=== PATIENT | male | born 1945 ===

== ENCOUNTER → 2025-01-30 13:48 | Outpatient (REF) | payer MEDICARE, SELFPAY ==
--- NOTE | 2025-01-30 14:00 | CA_ITS ---
Transthoracic Echocardiogram Patient (Last, First, Middle): Ash mitchell, Gender: Male Date of : 1945 Age: 79 Procedure Date: 01/30/2025 Procedure Type: Transthoracic Echocardiogram Location: [facility] Height: 177.8 cm Weight: 77.11 kg BSA: 1.95 m2 Heart Rate: bpm BP: 118 / 60 mmHg Senior Consulting Manager: Referring MD: Yolanda Blair DNP Symptoms: 135.0 Non Rheumatic Aortic Study Quality: Good ECG Rhythm: Sinus Conclusions: - The left ventricular systolic function is normal. The calculated ejection fraction is 66% by biplane method. - There is mild aortic valve stenosis. 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 Findings Left Ventricle Normal left ventricular cavity size. There is mildly increased left ventricular wall thickness. The left ventricular systolic function is normal. The calculated ejection fraction is 66% by biplane method. There is no evidence of regional wall motion abnormalities. Evidence suggests grade I (mild) diastolic dysfunction. Right Ventricle Normal right ventricular cavity size and systolic function. Atria Both atria are normal in size. Aortic Valve There is moderate calcification of the aortic valve. There is mild aortic valve stenosis. There is no aortic valve regurgitation. Mitral Valve The mitral valve appears normal. There is mild mitral annular calcification. There is no mitral valve regurgitation. There is no mitral valve stenosis. Pulmonic Valve The pulmonic valve is likely normal. Tricuspid Valve There is trace tricuspid valve regurgitation. There is no evidence of pulmonary hypertension. Great Vessels The asc aorta is normal in size. 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 Venous The inferior vena cava is normal in size and collapses greater than 50% with inspiration. Pericardium/Pleural There is no evidence of pericardial effusion. Prior Study Comparison No significant change compared to prior study dated: 11/19/2023. (prior study at [facility]) Measurements 2D Linear Measurements IVSd: 1.24 0.6-0.9/0.6-1.0 cm LVIDd: 3.81 3.9-5.3/4.2-5.9 cm LVIDd Index: 1.95 2.4-3.2/2.2-3.1 cm/m2 LVIDs: 2.54 2.0-3.6 cm LVPWd: 1.25 0.7-1.1 cm Ao Root: 3.50 2.1-3.5 cm LA Diam: 3.50 2.7-3.8/3.0-4.0 cm LAIDs Index: 1.79 1.5-2.3 cm/m2 LV Mass: 202.53 67-162/88-224 g LV Mass Index: 103.86 43-95/49-115 g/m2 LVOT Diam: 2.30 3.0+(-)1.3 cm 2D Systolic Function EF 4C: 68.80 >55% EF 2C: 62.50 >55% EF BiP: 66.20 >55% Mitral Valve MV Pk E: 0.90 MV PK A: 1.12 MV Decel Time: 199.00 E/A: 0.80 E'Lateral: 7.18 E'Medial: 5.66 E/E' Med: 15.90 E/E' Lat: 12.50 PHT: 58.00 MVA PHT: 3.[address] [place]: 4.51 Aortic Valve AoV Pk Greyson: 2.63 AoV Mn Greyson: 1.66 AoV VTI: 0.58 AoV Pk Grad: 28.00 Aov Mn Grad: 13.00 MARLEN Cont.VTI: 1.90 LVOT LVOT Pk Greyson: 0.96 LVOT Mn Greyson: 0.57 LVOT VTI: 0.26 LVOT Pk Grad: 4.00 LVOT Mn Grad: 2.00 LVOT Diam: 2.30 LVOT Area: 4.15 Diastolic Function MV Pk E: 0.90 MV Pk A: 1.12 E/A: 0.80 E'Medial: 5.66 E/E' Med: 15.90 E' Laterial: 7.18 E/E' Lat: 12.50 Right Ventricle TAPSE (mm): 30.00 Tricuspid Valve TR Pk Greyson: 1.96 TR Pk Grad: 15.00 RA Press: 3.00 RVSP: 18.00 Great Vessels Aorta Ao Root-2D: 3.50 2.0-3.7 cm Ao Asc: 3.80 2.1-3.4 cm Pulmonary Valve PV Pk Greyson: 0.96 Peak PV Grad: 4.00 Updated in Other Vendor System with Status of Final Volodymyr Galicia MD electronically signed on 01/31/2025 3:05:31 PM with status of Final
--- OUTSIDE RECORDS SUMMARY | 2025-01-30 15:04 | XMS_ITS | Data Portability ---
Author Organization [facility], [facility] Address [address] [place] [address] Care Team Providers Care Senior Materials Planner Name Role Phone PEDRO LUIS MERCER [place] CHRISTINE RON Primary Care Provider Assessment Encounter Date Assessment Date Assessment LastModified by Organization Details LastModified Time 09/29/2023 09/29/2023 We completed your Medicare Wellness exam today. This was an opportunity to assess your overall well being including your ability to care for yourself, your mobility, memory, mental health, as well as your safety. With advancing age, it is important to assign someone in your life as your Health Care Proxy (HCP). This person should know what is important to you and what your wishes are for medical procedures if you cannot communicate your wishes yourself (severe illness, unconsciousness) . We discussed having a completed Health Care Proxy form today. In addition, today we started a conversation about your End of Life wishes. These conversations will continue over the years. Please consider reading the book, Being Mortal by Howie Strong to help frame future conversations. We discussed the purpose of a MOLST form (Medical Orders for Life Sustaining Treatment) and completed this form if appropriate per your wishes. Vision and Hearing are senses that are critically important as we age. When impaired, they can contribute to memory loss, falls, and make it harder to drive, talk to family and friends, and engage in the world. Please get your vision checked yearly and your hearing checked when you start to notice hearing loss. We discussed approaches to lowering your risk of heart disease and stroke . Your blood pressure is at goal. Your cholesterol is at goal. We discussed cancer screening you may need as well as vaccines to prevent infections. Colon Cancer : Your risk of colon cancer is average. Due for colorectal screening:You decline this test.. if you are not planning to have a colonoscopy please screen with stool cards yearly. Aortic Aneurysm Screening : is indicated if you have a history of smoking and is due once at age 65. Influenza Vaccine : Flu shot yearly. Tetanus Vaccine : Every 10 years. Due: 2033. The following vaccines are available from your pharmacy: Pneumonia Vaccine : PCV20: once after age 65. Shingles Vaccine : 2 shots after age 50. Covid Vaccine : Make sure you have received the most up to date covid vaccine. Your personal health goal for the year is: [email or web address] Not available 09/29/2023 11:13:54 12/16/2023 12/16/2023 Patient reports waking up at 2:45 this morning with has left testicular pain. The pain was so severe that he almost went to the emergency room. The pain lasted about 5 minutes. He decided to try a warm compress, and this did seem to calm things down. He was able to go back to sleep, and describes a slight achiness in the left scrotum today. He denies any dysuria, or any systemic symptoms. Objective-vital signs noted. External exam is unremarkable. Left scrotal success a somewhat enlarged epididymis, but there was very little tenderness and no sign of a hernia. Assessment-acute , very intense left scrotal pain that came and went once. I explained to the patient that it may not be possible to figure out exactly what caused this. I believe a scrotal ultrasound is still appropriate to be sure that there are no anatomic abnormalities, and to try to alleviate the patient's anxiety that this could happen again at any minute. He is comfortable with this plan. josy Not available 12/16/2023 13:59:12 11/09/2024 11/09/2024 We reviewed your chronic medical conditions and updated your plan for management. Please review instructions below. We have discussed your personal goals and discussed how to reach your goals. Please reach out to us via the Portal or phone if you have questions about your chronic conditions or if you or your caregivers require assistance in meeting your goals. Please visit our website [email or web address] for more patient resources. As part of your care plan, we will help coordinate your ongoing medical needs, arrange for durable medical equipment, renew prescriptions and necessary prior authorizations, facilitate getting referrals and collaborating with specialist, referrals for VNA services. kit Not available 11/09/2024 09:25:43 12/19/2024 12/19/2024 We completed your Medicare Wellness exam today. This was an opportunity to assess your overall well being including your ability to care for yourself, your mobility, memory, mental health, as well as your safety. With advancing age, it is important to assign someone in your life as your Health Care Proxy (HCP). This person should know what is important to you and what your wishes are for medical procedures if you cannot communicate your wishes yourself (severe illness, unconsciousness) . We discussed having a completed Health Care Proxy form today. If appropriate, today we started a conversation about your End of Life wishes. These conversations will continue over the years. We discussed the purpose of a MOLST form (Medical Orders for Life Sustaining Treatment) and he will take the form home, review it, and return for a visit when available to complete this form if appropriate per his wishes. incubation Vision and Hearing are senses that are critically important as we age. When impaired, they can contribute to memory loss, falls, and make it harder to drive, talk to family and friends, and engage in the world. Please get your vision checked yearly and your hearing checked when you start to notice hearing loss. We discussed approaches to lowering your risk of heart disease and stroke . Your blood pressure is at goal. Your cholesterol is at goal. We discussed cancer screening you may need as well as vaccines to prevent infections. Colon Cancer : Your risk of colon cancer is average. Due for colorectal screening:declin ed. If you are not planning to have a colonoscopy please screen with stool cards yearly. Prostate Cancer : PSA testing for ages 55-69 risks and benefits discussed patient declines testing. Influenza Vaccine : Flu shot yearly. Tetanus Vaccine : Every 10 years. Due: 2033. The following vaccines are available from your pharmacy: Pneumonia Vaccine : PCV20: once after age 65. Shingles Vaccine : 2 shots after age 50. Covid Vaccine : Make sure you have received the most up to date covid vaccine. Your personal health goal for the year is: We reviewed your chronic medical conditions and updated your plan for management. Please review instructions below. We have discussed your personal goals and discussed how to reach your goals. Please reach out to us via the Portal or phone if you have questions about your chronic conditions or if you or your caregivers require assistance in meeting your goals. Please visit our website [email or web address] for more patient resources. As part of your care plan, we will help coordinate your ongoing medical needs, arrange for durable medical equipment, renew prescriptions and necessary prior authorizations, facilitate getting referrals and collaborating with specialist, referrals for VNA services. Aortic valve stenosis with an increasingly audible heart murmur. Discussed monitoring symptoms and potential need for another echo. Glaucoma- Uses brimonidine 0.2% eye drops twice daily. Discussed importance of adherence to treatment regimen to manage intraocular pressure. Hyperlipidemia- LDL level is 125, slightly elevated. HDL level is 59, which is good. Discussed dietary factors and aging as potential contributors to LDL levels. Encouraged regular physical activity to help manage cholesterol levels. Tobacco use- Smoked organic tobacco for about 40 years, quit 8-9 years ago. Discussed benefits of smoking cessation and use of nicotine gum. Uses nicotine gum but is considering reducing dependence. Wellness visit- Routine wellness visit conducted. Discussed vision and dental care. Follows a vegetarian diet and engages in regular physical activity. No family history of major diseases. Reviewed lab results, including LDL and HDL levels, which are within acceptable ranges. Discussed importance of maintaining a healthy lifestyle. Uses sunscreen and wears a seatbelt. Declined colonoscopy due to personal beliefs. - Continue annual vision and dental care. - Maintain regular physical activity and vegetarian diet. - Use sunscreen during summer and wear a seatbelt. - Consider installing grab bars in the bathroom for safety. - Schedule a follow-up appointment to finalize and sign the MOLST form. - Schedule a wellness visit in 1 year and return sooner willow Not available 12/19/2024 16:12:06 Plan of Treatment Reminders Order Date Submit Date Provider Last Modified By Organization Details Last Modified Time Details Appointments Gavinne Visit 30 2025 01:30P Eliza RON NP Not available Not available Not available Lab vitami n B12, serum 2024 025 [facility], [address] [place], [address], 11/14/2024 15:28:46 TSH, serum or plasma 2024 025 [facility], [address] [place], [address], 11/10/2024 13:37:17 CBC 2024 025 [facility], [address] [place], [address], 11/10/2024 11:16:15 lipid panel, serum 2024 025 [facility], [address] [place] [address], [address], 11/11/2024 11:52:20 CMP, serum or plasma 2024 025 [facility], [address] [place], [address], 11/11/2024 11:52:18 Referral audiol ogist referr al - b/mikey hearin g loss, please eval 2023 024 [facility]), [address] [facility], [facility] [address], [address], 10/06/2023 12:17:56 Procedures None record ed. Surgeries None record ed. Imaging US, echoca rdiogr am - Normal LV size and functi on EF 60 to 65%.No rmal RV size and functi on.Nor mal diasto lic functi on for age.Mi ld aortic stenos is peak veloci ty 2.4 m/s mean gradie nt 12 mmHg.C ompare d to study from 2021, there is no mild aortic stenos is. 2024 025 [email or web address] [facility], [address] [facility], [place], [address], 12/20/2024 08:01:25 US, scrotu m - episod e of severe left scrota l pain- resolv ed sponta neousl y--nnamdi n lasted intens marilu x 5 minute s- r/o mass- normal exam 2023 024 [facility]), [address], [place], [address], 12/16/2023 15:33:55 US, brice rdiogr am - eval for progre ssion of , compar e to 2pt remain s asx 2023 024 [email or web address] [facility], [address], [place], [address], 01/14/2024 16:23:38 Medication Orders clobet asol 0.05 % topica l cream 2024 025 [facility], [address] [place] [address], [address], 12/19/2024 16:33:36 brimon idine 0.2 % eye drops 2024 025 [facility], [address] [place] [address], [address], 12/19/2024 16:33:36 terbin afine HCl 1 % topica l cream 2024 025 [facility], [address] [place] [address], [address], 11/09/2024 09:29:14 Patient TargetsNo targets recorded. Patient Instructions Encounter Date Encounter Id Patient Instructions Last Modified By Organization Details Last Modified Time 09/29/2023 [id number] preventing falls: care instructions [email or web address] Not available 09/29/2023 11:10:59 hearing loss information [email or web address] Not available 09/29/2023 11:10:59 advance directives: care instructions [email or web address] Not available 09/29/2023 11:10:59 well visit, over 65: care instructions [email or web address] Not available 09/29/2023 11:11:00 Prostate Cancer Screening was discussed. The U.S. Preventive Services Task Force advises not to make a PSA test a part of the standard exam for men ages 55-69. Instead they recommend the uncertainties about the test be discussed and ordered only if a patient still wants it. Over their lifetimes as many as 50% or more of men will develop prostate cancer but only 2% of men will of prostate cancer. For men who chose to be screened for prostate cancer if 1000 men are screened with a psa test over a 15 year period there might be 1-2 deaths prevented however 235 men will have a biopsy with risk of infection, bleeding and Pain, 100 men will have their prostate removed by surgery or radiation treatments and 60-70 of those will suffer incontinence or impotence. There is also the risk of anesthesia or radiation complications. For men over 70 prostate cancer screening offered no benefit and risked pain, worry, expense and possibly shorter life expectancy. [email or web address] Not available 09/29/2023 10:03:16 11/09/2024 [id number] athlete's foot: care instructions [email or web address] Not available 11/09/2024 09:29:12 After a discussion of treatment options, which included consideration of best practices and patient preferences, the following treatment plan and objectives were adopted: as above. 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 ? ?L 4.23-9 .07 Not Available [address], [address], 11/10/2024 11:16:15 11/11/1911/10/2024 CBC RBC 4.82 M/? ? ?L 4.63-6 .08 Not Available [address], [address], 11/10/2024 11:16:15 11/11/1911/10/2024 CBC HGB 15.7 g/dL 13.7-1 7.5 Not Available [address], [address], 11/10/2024 11:16:15 11/11/19 25 11/10/2024 CBC HCT 46.0 % 40.1-5 1.0 Not Available [address], [address], 11/10/2024 11:16:15 11/11/19 25 11/10/2024 CBC MCV 95.4 fL 79.0-9 2.2 high Not Available [address], [address], 11/10/2024 11:16:15 11/11/19 25 11/10/2024 CBC MCH 32.6 pg 25.7-3 2.2 high Not Available [address], [address], 11/10/2024 11:16:15 11/11/19 25 11/10/2024 CBC MCHC 34.1 g/dL 32.3-3 6.5 Not Available [address], [address], 11/10/2024 11:16:15 11/11/19 25 11/10/2024 CBC plt 141 K/? ? ?L 163-33 7 low Not Available [address], [address], 11/10/2024 11:16:15 11/11/19 25 11/10/2024 CBC MPV 11.1 fL 9.4-12 .4 Not Available [address], [address], 11/10/2024 11:16:15 11/11/19 25 11/10/2024 CBC neut% 55.8 % 34.0-6 7.9 Not Available [address], [address], 11/10/2024 11:16:15 11/11/19 25 11/10/2024 CBC neut# 2.57 1.78-5 .38 Not Available [address], [address], 11/10/2024 11:16:15 11/11/19 25 11/10/2024 CBC lymph % 21.7 % 21.8-5 3.1 low Not Available [address], [address], 11/10/2024 11:16:15 11/11/19 25 11/10/2024 CBC lymph # 1.00 K/? ? ?L 1.32-3 .57 low Not Available [address], [address], 11/10/2024 11:16:15 11/11/19 25 11/10/2024 CBC mono% 15.2 % 5.3-12 .2 high SREV= Slide revie wed by donavon lawsonmasoud prajapati. Not Available [address], [address], 11/10/2024 11:16:15 11/11/19 25 11/10/2024 CBC mono# 0.70 0.30-0 .82 Not Available [address], [address], 11/10/2024 11:16:15 11/11/19 25 11/10/2024 CBC eo% 5.4 % 0.8-7. 0 Not Available [address], [address], 11/10/2024 11:16:15 11/11/19 25 11/10/2024 CBC eo# 0.25 0.04-0 .54 Not Available [address], [address], 11/10/2024 11:16:15 11/11/19 25 11/10/2024 CBC baso% 1.7 % 0.2-1. 2 high Not Available [address], [address], 11/10/2024 11:16:15 11/11/19 25 11/10/2024 CBC baso# 0.08 0.00-0 .08 Not Available [address], [address], 11/10/2024 11:16:15 11/11/19 25 11/10/2024 CBC RDW-CV 11.9 % 11.6-1 4.4 Not Available [address], [address], 11/10/2024 11:16:15 11/11/19 25 11/10/2024 CBC Ig% 0.200 % 0.000- 1.500 Ig % >0.5 Indic ates possi ble Left Shift Not Available [address], [address], 11/10/2024 11:16:15 11/11/19 25 11/10/2024 CBC Ig# 0.010 0.000- 0.093 Not Available [address], [address], 11/10/2024 11:16:15 11/11/19 25 11/10/2024 CBC NRBC% 0.0 % 0.0-0. 2 Not Available [address], [address], 11/10/2024 11:16:15 11/11/19 25 11/10/2024 CBC NRBC# 0.000 0.000- 0.012 Not Available [address], [address], 11/10/2024 11:16:15 11/11/19 25 11/10/2024 TSH TSH 1.12 uIU/m L 0.50-6 .00 The Ameri can Colle ge of Endoc rinol ogy and Ameri can Thyro id Assoc iatio n recom mend goal TSH value s betwe en 0.4-4 .0 mIU/m L. Not Available [address], [address], 11/10/2024 13:37:17 11/11/19 25 11/11/2024 COMP. METAB OLIC PANEL glucose 75 mg/dL 70-100 Not Available [address], [address], 11/11/2024 11:52:18 11/11/19 25 11/11/2024 COMP. METAB OLIC PANEL BUN 17 mg/dL 7-18 Not Available [address], [address], 11/11/2024 11:52:18 11/11/19 25 11/11/2024 COMP. METAB OLIC PANEL creatinine 0.9 mg/dL 0.8-1. 3 Not Available [address], [address], 11/11/2024 11:52:18 11/11/19 25 11/11/2024 COMP. METAB OLIC PANEL B/C 18.9 ratio Not Available [address], [address], 11/11/2024 11:52:18 11/11/19 25 11/11/2024 COMP. METAB OLIC PANEL GFR >=60ML /MIN mL/mi n normal >=60m L/min - In l or midly reduc ed <60mL /min- Decre ased kidne y funct ion <15mL /min - Kidne y failu re [facility] calcu lates estim ated Glome rular Filtr ation Rate (eGFR ) using the Chron ic Kidne y Disea se Epide miolo gy Colla borat ion (CKD- EPI) Equat ion (Brianna r et. al 2020) as recom zarina d by the Natio nal Kidne y Found ation . eGFR is based on age, serum creat inine , and sex. CKD-E PI does not calcu late eGFR by race, does not apply to child dante (age <18 years ), and shoul d not be used in pregn surya. Not Available [address], [address], 11/11/2024 11:52:18 11/11/19 25 11/11/2024 COMP. METAB OLIC PANEL sodium 142 mmol/ L 136-14 5 Not Available [address], [address], 11/11/2024 11:52:18 11/11/19 25 11/11/2024 COMP. METAB OLIC PANEL potassium 4.4 mmol/ L 3.5-5. 1 Not Available [address], [address], 11/11/2024 11:52:18 11/11/19 25 11/11/2024 COMP. METAB OLIC PANEL chloride 104 mmol/ L 96-107 Not Available [address], [address], 11/11/2024 11:52:18 11/11/19 25 11/11/2024 COMP. METAB OLIC PANEL anion gap 6.3 5.0-15 .0 Not Available [address], [address], 11/11/2024 11:52:18 11/11/19 25 11/11/2024 COMP. METAB OLIC PANEL CO2 32 mmol/ L 21-32 Not Available [address], [address], 11/11/2024 11:52:18 11/11/19 25 11/11/2024 COMP. METAB OLIC PANEL calcium 9.1 mg/dL 8.5-10 .3 Not Available [address], [address], 11/11/2024 11:52:18 11/11/19 25 11/11/2024 COMP. METAB OLIC PANEL total protein 6.0 g/dL 6.4-8. 2 low Not Available [address], [address], 11/11/2024 11:52:18 11/11/19 25 11/11/2024 COMP. METAB OLIC PANEL albumin 3.6 g/dL 3.4-5. 0 Not Available [address], [address], 11/11/2024 11:52:18 11/11/19 25 11/11/2024 COMP. METAB OLIC PANEL globulin 2.4 g/dL Not Available [address], [address], 11/11/2024 11:52:18 11/11/19 25 11/11/2024 COMP. METAB OLIC PANEL A/G 1.5 ratio 0.8-2. 0 Not Available [address], [address], 11/11/2024 11:52:18 11/11/19 25 11/11/2024 COMP. METAB OLIC PANEL total bilirubin 0.90 mg/dL 0.00-1 .00 Not Available [address], [address], 11/11/2024 11:52:18 11/11/19 25 11/11/2024 COMP. METAB OLIC PANEL AST 19 U/L 0-37 Not Available [address], [address], 11/11/2024 11:52:18 11/11/19 25 11/11/2024 COMP. METAB OLIC PANEL ALT 31 U/L 6-63 Not Available [address], [address], 11/11/2024 11:52:18 11/11/19 25 11/11/2024 COMP. METAB OLIC PANEL alk. phos. 81 U/L 50-136 Not Available [address], [address], 11/11/2024 11:52:18 11/11/19 25 11/11/2024 LIPID PANEL cholesterol 201 mg/dL <200 mg/dl Ashia able 200-2 39 mg/dl Borde rline High >240 mg/dl High Not Available [address], [address], 11/11/2024 11:52:19 11/11/1911/11/2024 LIPID PANEL triglyceride s 66 mg/dL <150 mg/dL Ni l 150-1 99 mg/dL Borde rline High 200-4 99 mg/dL High >500 mg/dL Very High Not Available [address], [address], 11/11/2024 11:52:19 11/11/1911/11/2024 LIPID PANEL direct HDL 60 mg/dL <40 mg/dl - Major Risk for CHD >60 mg/dl - Negat lani Risk for CHD Not Available [address], [address], 11/11/2024 11:52:19 11/11/1911/11/2024 DIREC T LDL direct LDL 138 mg/dL RISK CATEG ORY LDL GOAL _ CHD or CHD Risk Equiv alent s <100 mg/dl (10-y ear risk >20%) 2+ Risk Facto rs <130 mg/dl (10-y ear risk <= 20%) 0-1 Risk Facto r? <160 mg/dl ? Almos t all peopl e with 0-1 risk facto r have a 10 year risk <10%, thus 10 year risk asses ment in peopl e with 0-1 risk facto r is not neceda silvestre. Not Available [address], [address], 11/11/2024 11:52:20 11/11/1911/14/2024 VITAM IN B12 vitamin B12 524 pg/mL 230-10 50 Not Available [address], [address], 11/14/2024 15:28:46 12/15/19 25 12/14/2024 CBC WBC 4.45 K/? ? ?L 4.23-9 .07 Not Available [address], [address], 12/14/2024 12:10:54 12/15/19 25 12/14/2024 CBC RBC 4.95 M/? ? ?L 4.63-6 .08 Not Available [address], [address], 12/14/2024 12:10:54 12/15/19 25 12/14/2024 CBC HGB 16.0 g/dL 13.7-1 7.5 Not Available [address], [address], 12/14/2024 12:10:54 12/15/19 25 12/14/2024 CBC HCT 47.0 % 40.1-5 1.0 Not Available [address], [address], 12/14/2024 12:10:54 12/15/19 25 12/14/2024 CBC MCV 94.9 fL 79.0-9 2.2 high Not Available [address], [address], 12/14/2024 12:10:54 12/15/1912/14/2024 CBC MCH 32.3 pg 25.7-3 2.2 high Not Available [address], [address], 12/14/2024 12:10:54 12/15/19 25 12/14/2024 CBC MCHC 34.0 g/dL 32.3-3 6.5 Not Available [address], [address], 12/14/2024 12:10:54 12/15/19 25 12/14/2024 CBC plt 151 K/? ? ?L 163-33 7 low Not Available [address], [address], 12/14/2024 12:10:54 12/15/1912/14/2024 CBC MPV 10.8 fL 9.4-12 .4 Not Available [address], [address], 12/14/2024 12:10:54 12/15/1912/14/2024 CBC neut% 55.6 % 34.0-6 7.9 Not Available [address], [address], 12/14/2024 12:10:54 12/15/1912/14/2024 CBC neut# 2.47 1.78-5 .38 Not Available [address], [address], 12/14/2024 12:10:54 12/15/1912/14/2024 CBC lymph % 22.0 % 21.8-5 3.1 Not Available [address], [address], 12/14/2024 12:10:54 12/15/1912/14/2024 CBC lymph # 0.98 K/? ? ?L 1.32-3 .57 low Not Available [address], [address], 12/14/2024 12:10:54 12/15/1912/14/2024 CBC mono% 15.7 % 5.3-12 .2 high SREV= Slide revie wed by [facility]. Not Available [address], [address], 12/14/2024 12:10:54 12/15/19 25 12/14/2024 CBC mono# 0.70 0.30-0 .82 Not Available [address], [address], 12/14/2024 12:10:54 12/15/19 25 12/14/2024 CBC eo% 5.4 % 0.8-7. 0 Not Available [address], [address], 12/14/2024 12:10:54 12/15/19 25 12/14/2024 CBC eo# 0.24 0.04-0 .54 Not Available [address], [address], 12/14/2024 12:10:54 12/15/19 25 12/14/2024 CBC baso% 1.1 % 0.2-1. 2 Not Available [address], [address], 12/14/2024 12:10:54 12/15/1912/14/2024 CBC baso# 0.05 0.00-0 .08 Not Available [address], [address], 12/14/2024 12:10:54 12/15/19 25 12/14/2024 CBC RDW-CV 12.0 % 11.6-1 4.4 Not Available [address], [address], 12/14/2024 12:10:54 12/15/1912/14/2024 CBC Ig% 0.200 % 0.000- 1.500 Ig % >0.5 Indic ates possi ble Left Shift Not Available [address], [address], 12/14/2024 12:10:54 12/15/1912/14/2024 CBC Ig# 0.010 0.000- 0.093 Not Available [address], [address], 12/14/2024 12:10:54 12/15/19 25 12/14/2024 CBC NRBC% 0.0 % 0.0-0. 2 Not Available [address], [address], 12/14/2024 12:10:54 12/15/1912/14/2024 CBC NRBC# 0.000 0.000- 0.012 Not Available [address], [address], 12/14/2024 12:10:54 12/15/19 25 12/14/2024 LIPID PANEL cholesterol 199 mg/dL <200 mg/dl Ashia able 200-2 39 mg/dl Borde rline High >240 mg/dl High Not Available [address], [address], 12/14/2024 15:41:20 12/15/19 25 12/14/2024 LIPID PANEL triglyceride s 126 mg/dL <150 mg/dL Ni l 150-1 99 mg/dL Borde rline High 200-4 99 mg/dL High >500 mg/dL Very High Not Available [address], [address], 12/14/2024 15:41:20 12/15/19 25 12/14/2024 LIPID PANEL direct HDL 59 mg/dL <40 mg/dl - Major Risk for CHD >60 mg/dl - Negat lani Risk for CHD Not Available [address], [address], 12/14/2024 15:41:20 12/15/1912/14/2024 DIREC T LDL direct LDL 125 mg/dL RISK CATEG ORY LDL GOAL _ CHD or CHD Risk Equiv alent s <100 mg/dl (10-y ear risk >20%) 2+ Risk Facto rs <130 mg/dl (10-y ear risk <= 20%) 0-1 Risk Facto r? <160 mg/dl ? Almos t all peopl e with 0-1 risk facto r have a 10 year risk <10%, thus 10 year risk asses ment in peopl e with 0-1 risk facto r is not eran silvestre. Not Available [facility] [address], [place], [address], 12/14/2024 15:41:21 11/19/19 24 11/19/2023 US, echoc ardio gram Table format ting from the origin al result was not includ ed. Images from the origin al result were not includ ed. Result Report Patijuan blanca Name: Ash Campbell Class: Outpat ient Sonogr apher: Brice Fong Perfor muriel Physic pawan: None Select ed Suppor ting Staff: None Select ed Orderi ng Prov: Dalton -Vecch io, Kimberley ine E Primar y Care Physic pawan: Kat ine E Dalton -vecch io Diagno sis: Nonrhe umatic aortic (valve ) stenos is [I35.0 (ICD-1 0-CM)] Reason For Exam: NONRHE UMATIC AORTIC VALVE STENOS IS Other Indica tion (Pleas e use free text) Proced ure(s) Perfor med: Compre hensiv e Echo (TTE) Date Perfor med: 024 Access ion #: [id number] Result Status : Final Adult Echo TTE: Patien evangelist Commun icatio n Not Releas ed Not seen Echo Findin gs Genera l Findin gs The image qualit y was good (2). Techni que(s) used in the evalua tion: Color flow Dopple r and Spectr al Dopple r. The predom inant rhythm during the study was sinus. Left Ventri fernando The left ventri fernando is normal in size. There is normal wall thickn ess. There is normal left ventri cular systol ic functi on. The LV ejecti on fracti on is 63% (calcu lated via biplan e measur ement) . LV diasto lic functi on appear s within normal limits for age. The E/A ratio is 1.0. The e' septal wave veloci ty is 7.3 cm/s. The e' latera l wave veloci ty is 8.4 cm/s. The averag e E/e' ratio is 11.1. Right Ventri fernando The right ventri fernando is normal in size. There is normal right ventri cular systol ic functi on. IAS/IV S The intera trial septum appear s normal . There is no eviden ce of patent forame n ovale (PFO). There is normal septal struct ure. There is no eviden ce of a ventri cular septal defect . Left Atrium The left atrium is normal in size. The left atrial volume is 40 mL. The left atrial volume index by BSA is 21 mL/m2. There are normal flow patter ns in the pulmon sidney vein. Right Atrium The right atrium is normal in size. The IVC is normal in size with normal inspir atory collap se. The IVC diamet er is 19 mm (ni l <= 21 mm). Hepati c veins are normal in size. Aortic Valve The aortic valve is tricus pid. There is calcif icatio n of multip le leafle ts. There is mild aortic stenos is. The aortic valve peak veloci ty is 2.4 m/s. The peak and mean aortic valve gradie nts are 23 mmHg and 13 mmHg respec tively . There is trace aortic regurg itatio n. The visual ized portio ns of the thorac ic aorta appear normal in size. Mitral Valve The mitral valve appear s normal . There is no mitral stenos is. There is trace mitral regurg itatio n. Tricus pid Valve The tricus pid valve appear s normal . There is no tricus pid stenos is. There is trace tricus pid regurg itatio n. The RV systol ic pressu re was calcul ated at 13 mmHg (using TR peak veloci ty of 1.6 m/s and assumi ng an RA pressu re of 3 mmHg). Pulmon ic Valve The pulmon ic valve appear s normal . Perica rdium There is no perica rdial effusi on. There are no pleura l effusi ons. Compar jelani Findin gs Compar ed to a prior study on 022, Routin e Measur ements Height : 177 cm Systol ic BP: 151 mmHg Weight : 78 kg Diasto lic BP: 73 mmHg Body Surfac e Area: 1.95 m2 LV Measur ements LVIDed 44 mm (Range : 42 - 58) LVIDes 31 mm (Range : <40) IVS 9 mm (Range : 6 - 11) PWT 10 mm (Range : 6 - 11) LV EF 63 Percen t (Range : 50 - 75) LVOT gradie nt peak rest 4 mmHg E wave veloci ty 87.0 cm/s A wave veloci ty 90.7 cm/s e' (lat) 8.4 cm/s E/e' (lat) 10.36 AV Measur ements Ao Sinus 35 mm (Range : <40) Asc Ao 36 mm (Range : <36) AV peak veloci ty 2.4 m/s AV peak gradie nt 23 mmHg AV mean gradie nt 13 mmHg LVOT diamet er 19.0 mm LVOT veloci ty 1.0 m/s MV Measur ements E wave veloci ty 87.0 cm/s A wave veloci ty 90.7 cm/s Other Measur ements LA A-P 27 mm (Range : 15 - 40) LA volume 40 mL LA volume index by BSA 21 mL/m2 (Range : 16 - 34) RV sys pressu re 13 mmHg TV peak regurg itant veloci ty 1.6 m/s Mech Circ Suppor t Testin g LVd LVs TR peak roger RVSP (excl RAP) Initia l 44 mm (Range : 42 - 58) 31 mm (Range : <40) 1.6 m/s 10 mmHg Interp retati on Summar y Normal LV size and functi on EF 60 to 65%. Normal RV size and functi on. Normal diasto lic functi on for age. Mild aortic stenos is peak veloci ty 2.4 m/s mean gradie nt 12 mmHg. Compar ed to study from 2021, there is no mild aortic stenos is. Signed Electr onical ly signed by Seferino Rios MD on 4 at 1310 EDT Readin g Physic ians Physic pawan Role Seferino Rios MD Attend ing Cardio logist EVALUA TE FOR PROGRE SSION OF [facility] IO mmastroberti [facility] [address] [place], [address], 01/14/2024 16:23:37 12/16/19 24 12/16/2023 US, scrot um CLINIC AL HISTOR Y: Acute left scrota l pain TECHNI QUE: The scrotu m is evalua susanne with 2d sonogr aphy includ ing color and spectr al Dopple r of the arteri es and veins of the testic les. COMPAR JELANI: None. FINDIN GS: RIGHT TESTIC LE : 2.2 x 3.3 x 2.3 cm No intrat esticu lar mass is visual ized. Vascul ar flow to the testic le is normal . The epidid ymis is unrema rkable . LEFT TESTIC LE: 2 x 2.9 x 1.7 cm No intrat esticu lar mass is visual ized. There are 2 small cysts in the left testis . Vascul ar flow to the testic le is normal . The epidid ymis is unrema rkable . There are small bilate ral hydroc eles. IMPRES HIRA: No eviden ce of torsio n or other acute abnorm ality. Small bilate ral hydroc eles. Small left testic ular cysts Readin g Physic pawan: Rocky [facility] (Imaging) [address], [place], [address], 12/31/2023 08:55:55 Result Notes None recorded. Problems Name Problem SNOMED Code Status Onset Date Resolution Date Notes Provider Name and Address Organization Details Recorded Time Pain of shoulder region 50294631 Completed 07/20/2013 Not Available [facility] 3 02:01:03 Cough 86696605 Completed 200807/20/2013 Not Available [facility] 3 02:01:09 Knee pain Completed 200707/20/2013 Not Available [facility] 3 02:00:42 Acute bronchit is 27483999 Completed 200607/20/2013 Not Available [facility] 3 02:01:37 Upper respirat ory infectio n 92100764 Completed 05/08/2015 Laura Rose NP [address] [place] [address], , [facility] 5 12:44:12 Glaucoma 76371419 Active 2012 Laura Rose NP [address] [place] [address], , [facility] 5 12:44:12 Senile hyperker atosis 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 Active Laura Rose NP [address] [place] [address], , [facility] 5 13:02:37 Tobacco dependen ce syndrome 24894068 Completed 201609/16/2017 Mack Guadarrama MD [address] [place] [address], , [facility] 8 12:07:06 Nicotine dependen ce 48491616 Active 2017 nicotine gum daily Quit smoking 01/2014 Teetee shetty PA-C [address] [place] [address], , [facility] 9 16:34:39 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 TTE 10/2023 MILD . No change from 2021. 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 Procedures Surgical History Date Name Laterality Status Provider Name and Address Organization Details Recorded Time 12/20/19 25 Medicare Wellness Visit completed Elinor Owens MA [facility] 12/13/2024 16:50:00 12/20/19 25 Cerumen Removal - Irrigation/Lavage completed Sheela Hawk RN [facility] 12/19/2024 16:23:40 09/29/19 24 Medicare Wellness Visit completed Kelly Castillo MA [facility] 09/29/2023 10:03:17 09/29/19 24 Cerumen Removal - Irrigation/Lavage completed Marguerite Smith LPN [facility] 09/29/2023 11:32:06 09/29/19 24 Cardiovascular disease risk reduction counseling completed Teetee dumas PA-C [address] [place] [address], [phone], [facility] 10/01/2023 13:43:24 09/26/19 23 Medicare Wellness Visit completed Helene Suarez MA [facility] 09/26/2022 08:37:11 09/26/19 23 Cerumen Removal - Irrigation/Lavage completed Sheela Hawk RN [facility] 09/26/2022 10:23:48 09/26/19 23 Cardiovascular disease risk reduction counseling completed Rebeka Chavez DO [address] [place] [address], [phone], [facility] 09/30/2022 18:00:11 07/02/20 22 Punch Biopsy completed Teetee dumas PA-C [address] [place] [address], [phone], [facility] 07/02/2022 15:34:06 09/24/19 22 Medicare Wellness Visit completed Elinor Owens MA [facility] 09/24/2021 11:40:18 09/24/19 22 Alcohol use screening completed Elinor Owens MA [facility] 09/24/2021 11:40:18 09/24/19 22 Cardiovascular disease risk reduction counseling completed Elinor Owens [facility] 09/24/2021 11:40:18 01/06/20 19 Medicare Wellness Visit completed Jaycee Sanchez [facility] 01/05/2019 15:59:40 01/06/20 19 Cerumen Removal - Irrigation/Lavage completed Teetee dumas, PA-C [address] [place] [address], [phone], [facility] 01/05/2019 17:46:24 09/13/19 19 Cerumen Removal - Using Instrumentation completed Teetee dumas, PA-C [address] [place] [address], [phone], [facility] 09/13/2018 17:01:41 04/01/20 18 Smoking cessation counseling completed GRABIEL Duran [address] [place] [address], [phone], [facility] 04/13/2018 21:18:37 04/01/20 18 Carbon Monoxide Testing completed GRABIEL Duran [address] [place] [address], [phone], [facility] 04/13/2018 21:18:37 06/24/20 17 Medicare Wellness Visit completed Dalia Tavera MA [facility] 06/24/2017 10:32:33 06/23/20 16 Medicare Wellness Visit completed Dalia Tavera MA [facility] 06/23/2016 10:15:20 06/19/20 15 Medicare Wellness Visit completed Dalia Tavera MA [facility] 06/19/2015 10:15:01 02/24/20 14 Medicare Wellness Visit completed Dalia Tavera MA [facility] 02/23/2014 15:45:18 10/20/19 14 Smoking cessation counseling completed Reba Gonzáles [facility] 10/20/2013 12:12:15 02/22/20 13 Medicare Wellness Visit completed Dalia Tavera MA [facility] 02/21/2013 11:37:50 07/30/20 12 Treatment and Advice completed Tomas Eli, PT [address] [facility], [place], [address], [facility] 07/30/2012 08:34:48 07/13/20 12 Cerumen Removal completed Carmencita Montejo RN [facility] 07/13/2012 09:49:31 09/24/19 12 Medicare Wellness Visit completed Dalia Tavera MA [facility] 09/24/2011 11:22:15 Imaging Results None recorded. Procedure Notes None recorded. Medical Equipment None Reported. Allergies No known drug allergies Medications Name Sig Start Date Stop Date Status Note LastModified by Organization Details LastModified Time latanopro st job 0.005% active Not Available Not Available Not Available brimonidi ne tartrate 0.15 % soln active Not Available Not Available Not Available brimonidi ne job 0.15%brim onidine tartrate 04/22 completed Not Available Not Available Not Available brimonidi ne job 0.15% active Not Available Not Available Not Available flurbipro fen job 0.03% op active Not Available Not Available Not Available latanopro st 0.005 % eye drops INSTILL 1 DROP IN BOTH EYES AT BEDTIME 04/22 completed Not Available Not Available Not Available terbinafi ne HCl 1 % topical cream APPLY TO THE AFFECTED AND SURROUND ING AREAS OF SKIN BY TOPICAL ROUTE ONCE DAILY 2024 active Not Available Not Available Not Avai lable nicotine (polacril ex) 2 mg gum CHEW 1 PIECE OF GUM EVERY 2 HOURS DIRECTED active Not Available Not Available No t Available flurbipro fen 0.03 % eye drops INSTILL 1 DROP INTO THE RIGHT EYE THREE TIMES A DAY FOR 4 DAYS STARTING AFTER SURGERY ON 09/05/13 active Not Available Not Available No t Available clobetaso l 0.05 % topical cream APPLY A THIN LAYER TO AFFECTED AREA TOPICALL Y TWICE A DAY 2024 active Not Available Not Available Not Avai lable triamcino lone acetonide 0.1 % topical cream APPLY A THIN LAYER TO THE AFFECTED AREA(S) BY TOPICAL ROUTE 2 TIMES PER DAY 11/16 /2022 completed Not Available Not Available Not Available prednisol one acetate 1 % eye drops,isai pension 04/01 completed Not Available Not Available Not Available timolol maleate 0.25 % eye drops INSTILL ONE (1) DROP IN RIGHT EYE TWICE DAILY active Not Available Not Available No t Available cephalexi n 500 mg capsule Take 1 capsule every 8 hours by oral route for 5 days. 06/03 completed Not Available Not Available Not Available erythromy sherri 5 mg/gram (0.5 %) eye ointment active not current, but would like script- discussi ng during visit 12/19/24 am Not Available Not Available Not Available brimonidi ne 0.2 % eye drops INSTILL 1 DROP INTO AFFECTED EYE(S) BY OPHTHALM IC ROUTE EVERY 8 HOURS 2024 active Not Available Not Available Not Avai lable codeine 10 mg-guaife nesin 100 mg/5 mL Syrup Take 10 mL every 4 hours by oral route. 04/22 completed Not Available Not Available Not Available mupirocin 2 % topical ointment APPLY A SMALL AMOUNT TO THE AFFECTED AREA BY TOPICAL ROUTE 3 TIMES PER DAY 09/26 completed Not using 07/02/22 PP Not Available Not Available Not Available brimonidi ne 0.15 % eye drops INSTILL 1 DROP INTO BOTH EYES TWICE A DAY 12/19 completed Not Available Not Available Not Available nicotine 7 mg/24 hr daily transderm al patch Apply 1 patch every day by transder mal route. 04/22 completed Not Available Not Available Not Available neomycin 3.5 mg/g-poly myxin B 10,000 unit/g-de xameth 0.1 % eye oint 04/22 completed Not Available Not Available Not Available chlorhexi dine gluconate 0.12 % mouthwash 09/16 completed Not Available Not Available Not Available [employer] At-Home COVID-19 Test kit REFER TO MANUFACT URER INSTRUCT IONS INCLUDED IN PACKAGIN G 06/03 completed Not Available Not Available Not Available Vitals Date Recorded Body height Body mass index (BMI) Body weight Heart rate Systolic blood pressure Diastolic blood pressure Provider Name and Address Organization Details Last Updated DateTime 4 173.99 cm 24.9 kg/m2 03061.1 3 g 58 /min 120 mm[Hg] 66 mm[Hg] Kelly Castillo [facility] 4 10:18:16 Date Recorded Body height Body temperature Oxygen saturation Oxygen saturation in Arterial blood by Pulse oximetry Heart rate Body mass index (BMI) Body weight Systolic blood pressure Diastolic blood pressure Provider Name and Address Organization Details Last Updated DateTime 5 173.99 cm 97.2 [degF] 97 % 97 % 64 /min 25.5 kg/m2 11132.7 g 124 mm[Hg] 60 mm[Hg] Hanna Monroe [facility] 5 08:43:15 Date Recorded Body height Body mass index (BMI) Body weight Heart rate Systolic blood pressure Diastolic blood pressure Provider Name and Address Organization Details Last Updated DateTime 4 173.99 cm 24.9 kg/m2 57642.3 3 g 56 /min 123 mm[Hg] 73 mm[Hg] Susan ramires [facility] 4 13:37:52 Date Recorded Body height Heart rate Body mass index (BMI) Body weight Oxygen saturation Oxygen saturation in Arterial blood by Pulse oximetry Systolic blood pressure Diastolic blood pressure Provider Name and Address Organization Details Last Updated DateTime 5 173.99 cm 98 /min 26.4 kg/m2 92801.2 6 g 99 % 99 % 130 mm[Hg] 78 mm[Hg] Elinor Owens [facility] 5 15:09:35 Date Recorded Body height Oxygen saturation Oxygen saturation in Arterial blood by Pulse oximetry Heart rate Body mass index (BMI) Body weight Systolic blood pressure Diastolic blood pressure Provider Name and Address Organization Details Last Updated DateTime 4 173.99 cm 97 % 97 % 62 /min 25.5 kg/m2 13650.5 g 90 mm[Hg] 50 mm[Hg] Rad Mcclellan [facility] 4 16:04:14 Social History Question Answer Notes LastModified by Organizat ion Details LastModified Time Tobacco Smoking Status Former Smoker stopped 01/01/14- millie canas nicorette gum-02/23/14 ABOUT 2YEARS AGO Not Available [facility] 01/23/2011 02:08:46 Do You Wear A Helmet When Biking? No Information not available 09/24/2021 Are You Blind Or Do You Have Difficulty Seeing? No Has Current Rx-02/23/14 Information not available 02/23/2014 What Is Your Level Of Caffeine Consumption? Occasional 2 Cups Of Green Tea A Day, Mixes With Alma Delia [email or web address] Information not available 09/29/2023 How Much Tobacco Do You Chew? None Information not available 07/17/2011 Are You Deaf Or Do You Have Serious Difficulty Hearing? No Information not available 02/23/2014 What Type Of Diet Are You Following? VEGETARIAN Eats A Little Fish, Chicken Information not available 09/29/2023 Which Illicit Or Recreational Drugs Have You Used? None Information not available 02/21/2013 Education 4 Year College Information not available 07/17/2011 What Is The Highest Grade Or Level Of School You Have Completed Or The Highest Degree You Have Received? [id number] Furniture Making Information not available 09/24/2021 Have There Been Any Changes To Your Family Or Social Situation? No Information not available 09/26/2022 When Did You Quit Smoking? 6-10yearssinc elastcigarett e [email or web address] Information not available 09/26/2022 Are There Any Guns Present In Your Home? No Information not available 07/17/2011 Do You Use Insect Repellent Routinely? No Information not available 09/24/2021 Live Alone Or With Others? Alone Information not available 07/17/2011 Patient Has Health Care Proxy Signed And In Chart Yes Re Give 09/24/11; - Form Regiven 02/21/13 Sister-form Regiven 06/20/15 Information not available 09/25/2021 CCM Consent Discussion 09/26/2022 Information not available 09/26/2022 Marital Status Single Information not available 07/17/2011 What Was The Date Of Your Most Recent Tobacco Screening? 12/19/2024 Information not available 12/19/2024 How Many Children Do You Have? 1 And Maurice-juliet r [email or web address] Information not available 09/26/2022 What Is Your Current Pack Years? 30ormorepacky ears [email or web address] Information not available 09/29/2023 What Is Your Relationship Status? Information not available 09/24/2021 Do You Use Your Seat Belt Or Car Seat Routinely? No Yes For Long Trips [email or web address] Information not available 09/29/2023 Seat Belts Used Routinely Yes Information not available 09/24/2011 Are You Sexually Active? Yes [email or web address] Information not available 06/23/2016 Smoke Alarm In Home Yes Information not available 07/17/2011 Do You Have Smoke And Carbon Monoxide Detectors In Your Home? Yes Information not available 09/24/2021 At What Age Did You Start Smoking Tobacco? 19 Information not available 07/17/2011 Are You Passively Exposed To Smoke? No Information not available 09/24/2021 General Stress Level Medium Information not available 07/17/2011 Do You Use Sunscreen Routinely? Yes Prn [email or web address] Information not available 09/26/2022 How Many Years Have You Smoked Tobacco? 49 [email or web address] Information not available 09/29/2023 Do You Have Difficulty Walking Or Climbing Stairs? No Information not available 02/23/2014 Sex: Male Functional Status Question Answer Note LastModified by Organizat ion Details LastModified Time Do you use any illicit or recreational drugs? No Information not available 07/02/2022 Do you or have you ever used any other forms of tobacco or nicotine? No Information not available 07/02/2022 What is your level of alcohol consumption? None quit 13 years ago [email or web address] Information not available 11/12/2021 Do you or have you ever used smokeless tobacco? Never used smokeless tobacco [email or web address] Information not available 03/15/2021 Are you currently employed? Yes works [employer] Information not available 09/26/2022 Do you have difficulty doing errands alone? No Information not available 02/23/2014 What is your occupation? [employer] Information not available 07/17/2011 Do you have difficulty dressing or bathing? No Information not available 02/23/2014 Do you or have you ever used e-cigarettes or vape? Never used electronic cigarettes [email or web address] Information not available 03/15/2021 What is your exercise level? Occasional hiking, bike [email or web address] Information not available 09/29/2023 Mental Status Question Answer Note LastModified by Organization D etails LastModified Time Do you have difficulty concentrating, remembering or making decisions? No Information no t available 02/23/2014 Family History Nothing Reported Notes:father- skin cancer, e tohism mother- cva sister-healthy Medical History Condition Response Coronary Artery Disease N Gout N Atrial Fibrillation N Macular Degeneration N Kidney Stones N Erectile Dysfunction N Menopausal Symptoms N COPD N Depression N Incontinence N Cerebral Vascular Accident N ENDOCRINE N MUSCULOSKELETAL N Migraine Headaches N Congestive Heart Failure N RESPIRATORY N Alcoholism N Obesity N Diverticulosis N acne N Stroke N Crohn's Disease N OTHER N HIV/AIDS N CARDIOVASCULAR N GERD N Skin Cancer N Skin Disease N Rheumatoid Arthritis N Fibromyalgia N Irritable Bowel Syndrome N Chronic Vaginitis N Kidney Disease N Spondylitis N Anxiety N GASTROINTESTINAL N SKIN N Peptic Ulcer Disease N Constipation N RHEUMATOLOGIC N Osteopenia N Rheumatic Fever N Cataracts N Bleeding Disorder N Tuberculosis N HEMATOLOGIC N Myocardial Infarction N Allergic Rhinitis N Allergies N Asthma N Polycystic Ovary Syndrome N Diabetes Type II N Substance Abuse N Seizures N Peripheral Vascular Disease N Rheumatic Heart Disease N Abnormal Pap N Diabetes Type I N Thyroid Disease N Leukemia N Colon Cancer N Breast Cancer N INFECTIOUS DISEASE N Lung Cancer N Alzheimers Dementia N Glaucoma N Hyperthyroid N Pacemaker N Atrophic Vaginitis N PSYCHIATRIC N Interstitial Lung Disease N Deep Vein Thrombosis N Psychiatric Disorders N Venous Insuffiency N Hearing Loss N rosacea N Systemic Lupus E N EYE N Heart Valve Replacement N eczema N Benign Prostatic Hypertrophy N Hyperparathyroid N CANCER N Schizophrenia N Suicide Attempt N Pulmonary Embolus N Chronic Cough N Osteoarthritis N NEUROLOGIC N Parkinson's Disease N Lyme Disease N Chronic Neck Pain N Prostate Cancer N ENT N Transient Ischemic Attack N Hepatitis C N Anemia N Colon Polyps N Hypothyroid N RENAL / GENITOURINARY N Hyperlipidemia N Valvular Heart Disease N Diverticulitis N METABOLIC N psoriasis N Hepatitis B N Chronic Back Pain N Bipolar Disorder N Ulcerative Colitis N Sleep Apnea N Heart Disease N Hypertension N Osteoporosis N Immunizations Vaccine Type Date Status Note Provider Nam e and Address Organization Details Recorded Time Td (adult), 5 Lf tetanus toxoid, preservative free, adsorbed 3 completed Not Available [facility] 09/17/2019 02:17:01 pneumococcal polysaccharide PPV23 3 completed Not Available [facility] 09/17/2019 02:14:35 Pneumococcal conjugate PCV 13 6 completed Not Available [facility] 09/17/2019 02:28:43 SARS-COV-2 (COVID-19) vaccine, UNSPECIFIED 1 completed [facility]15[facility]21 09:29:57 Td (adult), 2 Lf tetanus toxoid, preservative free, adsorbed 4 completed Teetee Lawrence PA-C [address] [place] [address], [address], [facility] 10/01/2023 13:40:23 Influenza, high-dose, quadrivalent, PF 4 completed Teetee Lawrence PA-C [address] [place] [address], [phone], [facility] 10/01/2023 13:40:23 COVID-19, mRNA, LNP-S, PF, 100 mcg/0.5mL dose or 50 mcg/0.25mL dose 1 [facility] 16:12:45 COVID-19, mRNA, LNP-S, PF, 100 mcg/0.5mL dose or 50 mcg/0.25mL dose 1 completed Marguerite Smith LPN [facility] 03/12/2022 17:37:36 COVID-19, mRNA, LNP-S, PF, 100 mcg/0.5mL dose or 50 mcg/0.25mL dose 2 completed Marguerite Smith LPN [facility], [facility] 03/12/2022 17:38:14 COVID-19, mRNA, LNP-S, PF, 100 mcg/0.5mL dose or 50 mcg/0.25mL dose completed LALA Bob [facility] 07/02/2022 14:37:25 Past Encounters Encounter ID Performer Location Encounter Start Date Encounter Closed Date Diagnosis/Indication Diagnosis SNOMED-CT Code Diagnosis ICD10 Code Diagnosis Note [id number] Mack Guadarrama MD , [facility], [address] [place] [address] 08/04/2007 13:41:44 09/20/2008 02:02:29 [id number] [facility] RADIOLOGY [employer] [facility] [place] , [facility] [address] [place] [address] 12/29/2007 09:19:37 12/30/2007 09:14:31 [id number] Mack Guadarrama MD , [facility], [address] [place] [address] 12/29/2007 08:58:19 09/20/2008 02:02:29 [id number] Mack Guadarrama MD , [facility], [address] [place] [address] 09/01/2008 15:08:57 09/20/2008 02:02:29 [id number] [facility] RADIOLOGY [employer] [facility] [place] , [facility] [address] [place] [address] 09/01/2008 16:27:40 09/04/2008 08:33:26 [id number] Mack Guadarrama MD , [facility], [address] [place] [address] 12/18/2009 16:01:18 12/19/2009 11:12:55 [id number] Mack Guadarrama MD , [facility], [address] [place] [address] 07/09/2010 09:09:07 07/09/2010 14:09:21 [id number] Yuriy Guzman MD , [facility], [address] [place] [address] 05/23/2011 10:59:22 05/26/2011 11:10:23 [id number] Mack Guadarrama MD , [facility], [address] [place] [address] 09/24/2011 10:47:06 09/24/2011 11:55:42 [id number] [facility] [employer] Radiology , [facility] [address] [place] [address] 10/21/2011 08:59:18 10/24/2011 11:40:00 [id number] Mack Guadarrama MD , [facility], [address] [place] [address] 07/13/2012 08:05:07 07/14/2012 11:40:44 [id number] Mack Guadarrama MD , [facility], [address] [place] [address] 07/29/2012 08:24:31 07/29/2012 10:37:32 [id number] Tomas Eli , PT Physical Therapy, [facility] [address] [place] [address] 07/30/2012 07:47:54 08/02/2012 07:51:28 [id number] Mack Guadarrama MD , [facility], [address] [place] [address] 11/04/2012 08:42:16 11/05/2012 15:21:26 [id number] Kenji Chung MD Radiology , [facility] [address] [place] [address] 11/04/2012 08:57:29 11/04/2012 09:14:16 [id number] Mack Guadarrama MD , [facility], [address] [place] [address] 02/21/2013 11:19:25 02/21/2013 13:19:49 [id number] Seferino Herrmann MD , [facility], [address] [place] [address] 10/20/2013 12:00:45 10/20/2013 13:07:24 Tobacco user [id number] Acute pharyngitis 177452370 Upper resp iratory infection 05701327 [id number] Mack Guadarrama MD , [facility], [address] [place] [address] 02/23/2014 15:24:00 02/24/2014 11:37:59 Adult health examination [id number] see Risk Assessment and Lifestyle Change Counseling section above Counseling [id number] Tobacco user [id number] q uit smoking February 01 [id number] Seferino Herrmann MD , [facility], [address] [place] [address] 07/20/2014 16:18:16 07/20/2014 16:50:21 Right upper quadrant pain 754555864 may be rib pain, but will get u/s, reduce fat in diet and f/u if sx persit [id number] Mack Guadarrama MD , [facility], [address] [place] [address] 09/04/2014 16:38:15 09/07/2014 10:41:19 Acute bronchitis 57480254 rest, hot liquids,hu midify air, call if worse [id number] Mack Guadarrama MD , [facility], [address] [place] [address] 01/01/2015 16:22:14 01/04/2015 13:00:08 Tobacco user 059524280 told he can stay on the nicotime gum for ever if he wants. Otherwise can taper down at his convenienc e. [id number] Mack Guadarrama MD , [facility], [address] [place] [address] 02/14/2015 09:40:19 02/19/2015 13:56:00 Gastroesophageal reflux disease 780104385 avoid larry, tomato products, nicotine gum take otc Tagamet, Pepcid, zantac or prilosec Dysphagia 91761484 r/o stricture from gerd [id number] Laura Rose NP , [facility], [address] [place] [address] 05/08/2015 12:01:20 05/09/2015 10:10:42 Senile hyperkeratosis 320579065 Pt also seen by Dr. Guadarrama. Reassured pt of benign lesion. [id number] Mack Guadarrama MD , [facility], [address] [place] [address] 06/19/2015 10:04:40 06/19/2015 11:09:16 Adult health examination 053543387 Z00.00 refuses flu vaccine agrees to [facility] to return for the later immunizati on Counseling 093162970 Z71 .9 [id number] Laura Rose NP , [facility], [address] [place] [address] 11/29/2015 10:54:55 11/30/2015 10:55:33 Puncture wound of hand 763284255 S61.431A TD in 2013. Will give anti-bioti c just in case. Its been 10 days and area and surroundin g area are still sore. This occured at home. [id number] Mack Guadarrama MD , [facility], [address] [place] [address] 06/23/2016 10:09:07 06/23/2016 11:06:34 Adult health examination 784039963 Z00.00 see Risk Assessment and Lifestyle Change Counseling section above Counseling 863183057 Z71 .9 Screening for disorder 786810356 Z13.9 Nicotine dependence 5629 4008 F17.200 not smoing now- wants patch in case has desire again to smoke Active or passive immunization 483692002 Z23 Glaucoma 50743289 H40.9 sees ophth [id number] Mack Guadarrama MD , [facility], [address] [place] [address] 11/19/2016 14:41:11 11/20/2016 13:27:48 Acute bronchitis 94286182 J20.9 rest, hot liquids,hu midify air, call if worse [id number] Seferino Herrmann MD , [facility], [address] [place] [address] 04/22/2017 11:50:40 04/22/2017 14:21:28 Pain of hip region 68063100 M25.551 by hx and exam strain of hip- sx tx reviewed- f/u if not resolving in 7-10 days- [id number] Mack Guadarrama MD , [facility], [address] [place] [address] 06/24/2017 10:29:46 06/25/2017 09:17:28 Adult health examination 336171981 Z00.00 see Risk Assessment and Lifestyle Change Counseling section above Counseling 270163518 Z71 .9 Screening for disorder 642557224 Z13.9 Screening for malignant neoplasm of colon 913451386 Z12.11 [id number] Mack Guadarrama MD , [facility], [address] [place] [address] 07/28/2017 12:14:54 07/29/2017 08:28:13 Tobacco dependence syndrome 45991452 F17.200 can supplement with nicotine gum [id number] Mack Guadarrama MD , [facility], [address] [place] [address] 09/16/2017 11:51:12 09/16/2017 16:16:39 Cataract 301336112 H26.[address] Wright Pre-surger y evaluation 674860065 Z01.818 medically cleared for surgery Glaucoma 93295126 H40.9 sees ophth- continue [facility] med [id number] Seferino Herrmann MD , [facility], [address] [place] [address] 11/23/2017 11:41:24 11/24/2017 16:19:12 Eczema 42858426 L30.9 [id number] Seferino Herrmann MD , [facility], [address] [place] [address] 04/01/2018 11:01:33 04/02/2018 13:44:32 Screening for malignant neoplasm of colon 139648830 Z12.11 Eruption 162880283 R21 suspect insect bites- sx tx reviewed Nicotine dependence 5629 4008 F17.200 Cigarette smoker 4672805 7 F17.210 Tobacco user 910693240 Z 72.0 [id number] Jose Martin Ching MD , [facility], [address] [place] [address] 09/13/2018 15:19:45 09/13/2018 16:14:24 Active or passive immunization 634083382 Z23 Benign par oxysmal positional vertigo 435153143 H81.13 Sxs classic, have now resolved spontaneou slyLiterat ure givenIf sxs recur, discussed PT/ Norman maneuver &/ meclizineP hollis: PHA in next few mo; red flags discussed. Ex-smoker 8911038 Z87.89 1 Impacted cerumen 9966160 6 H61.22 cerumen cleared with curette [id number] Garrett Ontiveros MD , [facility], [address] [place] [address] 11/12/2018 10:58:04 11/12/2018 11:27:41 Paronychia of finger 215627707 L03.011 Mild edema and TTP around right index later finger nail. Antibx not indicated. Advised diaily warm soaks, gentle cleaning, OTC antibx ointment and keeping finger wrapped/co nvered while at work.RTC for increasing pain, spreading redness, fever/chil ls. F/U 2 weeks as needed. [id number] Pedro Luis Doll MD , [facility], [address] [place] [address] 11/30/2018 15:02:54 11/30/2018 16:02:39 Paronychia of finger 867313143 L03.735 [id number] Jose Martin Ching MD , [facility], [address] [place] [address] 01/05/2019 15:55:46 01/05/2019 17:27:57 Adult health examination 634252629 Z00.00 Encouraged continuing her healthy lifestyle/ routine exercise & well rounded diet Sees Dentist/Op tometrist routinelyD eclines FOBT or colonoscop y Counseling 931199083 Z71 .9 Depression screening 171 231194 Z13.89 depression screening tool administer ed, entered into emr, scored and discussed, time greater than 7.5 minutes11/30 7 Nicotine dependence 5629 4008 F17.200 chews gum onlyquit smoking 2014 Glaucoma 54757403 H40.9 Stable, sees Ophthalmol ogy, continues drops Hypercholesterolemia 136 31240 E78.00 LDL 137 in May 2017Goal < 130ASCVD risk 16% (former smoker)Dis cussed dietary changes, will incr CV exercise to 30 min 5x /wkRecheck labs in 3-6 moFU appt thenPt prefers no medication /statin Advance care planning 71 8224660 Z71.89 MOLST form given/ will review again at fu apptEnc him to discuss ACP with his daughter and his HCP Impacted cerumen 5818720 6 H61.22 cerumen partially clearedwil l recheck in 3 mo [id number] Jose Martin Ching MD FP, [facility], [address] [place] [address] 04/11/2019 14:49:32 04/11/2019 15:59:02 Hypercholesterolemia 32826134 E78.00 LDL 137 in May 2017, now down to 123Healthy diet Goal LDL < 130ASCVD risk 19% (former smoker)BP at goal, no hx HTN, no IFG.Medite rranean diet discuss; is vegetarian .Pt prefers no medication /statinPro s, cons, R/B of treating w. statin reviewed. [id number] Jose Martin Ching MD , [facility], [address] [place] [address] 02/24/2020 14:58:22 02/27/2020 10:58:40 Discoloration of skin 7435738 R23.8 recent onset , near kneecapsno red flags for cellulitis , painless, no warmth, no traumano video or photo to view.plan 'outside tent visit' next week if sxs are persisting for accurate dx [id number] Jose Martin Ching MD , [facility], [address] [place] [address] 02/28/2020 16:14:55 03/14/2020 15:25:06 Varicose veins of lower extremity 55200271 I83.90 reassuranc e provided: benign spider veins and small venous thomas of R upper thigh. [id number] GRABIEL Duran , [facility], [address] [place] [address] 03/15/2021 08:55:38 03/15/2021 11:42:56 Insect bite to leg - nonvenomous 623455331 S80.869A Labs not indicated. Monitor for fatigue, joint/body aches. F/U PRN. Discussed preventati ve measures. Screening for malignant neoplasm of colon 955563916 Z12.11 Check stool cards Fatigue 49355851 R53.83 Consider checking labs. Continue to work on diet as discussed. Avoid sun during hottest times of day. [id number] Hanna Moss MD , [facility], [address] [place] [address] 09/24/2021 15:51:32 09/25/2021 16:51:51 Adult health examination 754784150 Z00.00 Encouraged continuing her healthy lifestyle/ routine exercise & well rounded dietSees Dentist/Op tometrist routinelyD eclines FOBT or colonoscop yDeclines updating lipids; will do LDL < 130, normal BMP and lipidsVacc elle are UTD Completed HCP and MOLST forms today, given ACP packet as well Counseling 061366416 Z71 .9 including cardiovasc ular risk reduction counseling No indication for ASA at this time Depression screening 171 659023 Z13.31 depression screening tool administer ed, entered into emr, scored and discussed, time greater than 7.5 minutesNEG Screening for alcohol abuse 222217771 Z13.39 NEG Screening for disorder 761574710 Z13.9 Impacted c erumen of bilateral ears 9616330475 000983 H61.23 Systolic murmur 25501227 R01.1 new finding with mild exertional dyspnea Elevated blood-pressure reading without diagnosis of hypertension 810215653 R03.0 was a little anxious todayAge 76 BP goal < 140/90repe at BP same : 150/70to sched appt with BP clinic 2-3 weeks and will recheck again in 4-6 weeks at next appt to discuss TTE Results [id number] DO PEYTON Chao, [facility], [address] [place] [address] 11/12/2021 16:44:47 11/18/2021 10:24:47 Hypercholesterolemia 48609754 E78.00 At goal on last lipid panel, off meds. Repeat testing ordered by PCP, still pending. Systolic murmur 25756331 R01.1 Pt feeling well, heard on exam. Has echo scheduled for next week. Discussed indication s/results at length. Call with new/worsen ing symptoms. Pt agrees with plan. Patient ne w to provider [id number] 28286 Z76.89 Essential hypertension 86935010 I10 At goal today, off meds. Plan as above. [id number] DO PEYTON Chao, [facility], [address] [place] [address] 11/29/2021 13:45:09 11/29/2021 15:06:21 Moderate aortic valve stenosis 493727898 I35.0 TTE 10/2021 ordered for audible murmurPt is asymptomat icNormal LVEF of 60 to 65% , Normal RV systolic function and Mild to moderate aortic stenosis.F indings reviewed.D iscussed indication for referral to Cards: exertional CP, GAN, dizziness. Will monitor with annual TTE for progressio n and refer if becomes severe Screening for disorder 745082672 Z13.9 Fatigue 21455709 R53.83 CMP was wnlFeels a little tired latelyVery active, remains so. Will ck labsFU if sxs worsen Hypercholesterolemia 136 31809 E78.00 LDL now down to 123 off medsHealth y dietGoal LDL < 130BP at goal, no hx HTN, no IFG.Medite rranean diet discuss; is vegetarian .Pt prefers no medication /statinPro s, cons, R/B of treating w. statin reviewed. 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 Advised warm compresses and apply mupirocin. Consider derm referral. Eruption 258891584 R21 Rash left upper chest: appears like healing herpes zoster although does cross midline.Martinez s been present for 2 weeks so no antivirals given. It is not painful. Moderate a ortic valve stenosis 236607152 I35.0 Echo 10/2021 reviewed. Irregular heart beat 361 453635 R00.8 Irregular rhythm on exam so EKG done.No afib/aflut ter; no acute abnormalit ies on EKG. [id number] Hanna Moss MD , [facility], [address] [place] [address] 06/03/2022 10:23:58 06/03/2022 13:52:11 Vaccination not done 1959811433 9108 Z28.29 Patient declined the flu vaccine at this time. 06/03/22 am Eruption 094652405 R21 fu in 3- 4 wksIf persisting , will get punch bx Moderate a ortic valve stenosis 481108541 I35.0 TTE 10/2021 mild-mod ASPt is asymptomat icNormal LVEF of 60 to 65% , Normal RV systolic function and Mild to moderate aortic stenosis.F indings reviewed.D iscussed indication for referral to Cards: exertional CP, GAN, dizziness. Will monitor with q1-2 yr TTE for progressio n and refer if becomes severe Hypercholesterolemia 136 57295 E78.00 LDL now down to 123 off medsHealth y dietGoal LDL < 130Mediter ranean diet discuss; is vegetarian .Pt prefers no medication /statinPro s, cons, R/B of treating w. statin reviewed. 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 occlusive drsg x UP to 4 wksconside r intralesio nal kenalog if persistsGa ve 4x4 Telfa , recommend covering to stop scratching Elevated blood-pressure reading without diagnosis of hypertension 879080417 R03.0 marked improve't on rptwill get BP Cuff at homewhite coat HTN [id number] Rebeka Chavez DO , [facility], [address] [place] [address] 09/26/2022 09:14:41 09/26/2022 10:19:40 Adult health examination 647833262 Z00.00 Pts overall health is good. Reviewed prior labs, f/u repeat labs. Next [place] in 1 year. Depression screening 171 995572 Z13.31 depression screening tool administer ed Screening for alcohol abuse 369794365 Z13.39 None. Moderate a ortic valve stenosis 767885974 I35.0 Stable, asymptomat ic. Elevated blood-pressure reading without diagnosis of hypertension 725408398 R03.0 Stable, managed off meds. Vegetarian diet. Glaucoma 45706912 H40.9 Stable. Hypercholesterolemia 136 96328 E78.00 At goal on last lipid panel, f/u results. Lichen sim plex chronicus 39871000 L28.0 Stable. Nicotine dependence 5629 4008 F17.200 Uses gum with good effect Senile hyperkeratosis 39 7879345 L82.1 Stable. Dizziness 942871807 R42 Very brief, resolves on it's own. Call with new/worsen ing symptoms or if no improvemen t. Pt agrees with plan. Impacted c erumen of bilateral ears 4173447483 791580 H61.23 RN to irrigate. Counseled by member of primary health care team 528608138 Z71.9 Today we discussed ways to reduce your 10-year cardiovasc ular disease risk. Things that decrease risk for cardiovasc ular events include eating a diet high in fiber (fruits and vegetables ) and low in simple carbohydra wood (bread, rice, pasta, alcohol, potatoes), decreasing processed foods, limiting juice and alcohol, limiting saturated fats (butter, ice cream, and cheeses), and adding regular daily activity. Having blood pressure that is <130/80. Having well controlled cholestero l (LDL and triglyceri danielle) by eating a healthy diet and taking medication s when necessary. Managing daily stress with meditation or yoga. Depending on your other cardiovasc ular risks your practition er may recommend taking daily aspirin. [id number] Brandi Rust MD , [facility], [address] [place] [address] 10/09/2022 08:37:11 10/09/2022 13:05:31 Cellulitis 508349066 L03.90 open and draining, no edema or erythemaco ntinue topical abxcall if concerns [id number] MD PEYTON Mancia, [facility], [address] [place] [address] 01/29/2023 15:23:32 01/29/2023 16:56:13 Eruption 222348968 R21 Pt has had this on and off x yrs. Reviewed with pt pathology report from previous biopsy - lichen simplex chronicus. Enc not to scratch, continue to use the steroid cream prn which he states is effective. Reassured this is not ringworm which was his main concern. Avoid triggers (he feels sx worse if eats sweets). F/u prn [id number] Hanna Moss MD , [facility], [address] [place] [address] 09/29/2023 09:59:10 09/29/2023 11:33:23 Adult health examination 850844130 Z00.00 Encouraged continuing her healthy lifestyle/ routine exercise & well rounded dietHas routine mindfulnes s practiceHe althy dietSees Dentist/Op tometrist routinelyD eclines FOBT or colonoscop yDeclines updating lipids, wouldnt want statinActi ve, eats mostly whole foods, meditates2 019 LDL < 130, normal BMP and lipidsVacc elle: updating todayDecli treva LDCTComple susanne HCP Depression screening 171 138774 Z13.31 depression screening tool administer edneg Screening for alcohol abuse 222519298 Z13.39 Alcohol use screening tool administer edneg Screening for malignant neoplasm of prostate 244722667 Z12.5 PSA testing for ages 55-69 risks and benefits discussed patient declines testing. Active or passive immunization 811455035 Z23 Former hea vy tobacco smoker 0709225593 29936 Z87.891 reviewed pack yr hx of > 30 yrsDiscuss ed LDCTDeclin es for now, is considerin g Moderate a ortic valve stenosis 265208780 I35.0 TTE 10/2021 mild-mod ASPt is asymptomat icNormal LVEF of 60 to 65% , Normal RV systolic function and Mild to moderate aortic stenosis.F indings reviewed.D ue for TTE for progressio n and refer if becomes severe Bilateral hearing loss 62599099 H91.93 Impacted c erumen of bilateral ears 5396728461 693046 H61.23 successful ly flushed Counseled by member of primary health care team 814123536 Z71.9 Today we discussed ways to reduce your 10-year cardiovasc ular disease risk. Things that decrease risk for cardiovasc ular events include eating a diet high in fiber (fruits and vegetables ) and low in simple carbohydra wood (bread, rice, pasta, alcohol, potatoes), decreasing processed foods, limiting juice and alcohol, limiting saturated fats (butter, ice cream, and cheeses), and adding regular daily activity. Having blood pressure that is <130/80. Having well controlled cholestero l (LDL and triglyceri danielle) by eating a healthy diet and taking medication s when necessary. Managing daily stress with meditation or yoga. [id number] Garrett Ontiveros MD , [facility], [address] [place] [address] 12/16/2023 13:21:04 12/17/2023 10:55:19 Pain in scrotum 50825150 N50.82 [id number] ANDREW Madison , [facility], [address] [place] [address] 07/05/2024 15:47:28 07/05/2024 17:25:30 Anxiety 45060944 F41.9 At length discussion regarding coping skills. Advised that it is OK to drink green tea as he is trying to decrease caffeine intake. F/U PRN [id number] Hanna Moss MD , [facility], [address] [place] [address] 11/09/2024 08:32:46 11/09/2024 09:33:44 Aortic valve stenosis 35537839 I35.0 noted murmurradi ates to carotidsed ucation to pt todaydoubt this causes the vibration sense in his right foot though no clear other causehe has no palpitatio ns, CP, SOB, activity intoleranc ehe will watch for sxhas f/u w PCP in one month Hypercholesterolemia 136 10403 E78.00 by hxno labs in 3 yearswill order panel for his wellnesshe eats vegetarian diet Tinea pedis 4945439 B35. 3 noted on examtx with terbinafin egiven some evidence of inflammato ry rash with tinea may need duo tx with steroids and antifungal Paresthesia 38078729 R20 .2 he has a humming sensation in right foot, usually at rest, usually in AMshe doesn't have pain or numbnessit is the inside of foot radiating up inside of leghe has no back pain or leg pain or limitation from thishe relates it to his heart, was told it was a sensation from his murmurhe has quite a heart murmur, systolic to carotids, and only mild Aortic valve stenosis a year ago w/o any advancing sxwill check below labsf/u w PCP at [facility] [id number] Hanna Moss MD , [facility], [address] [place] [address] 12/19/2024 14:55:03 12/19/2024 16:27:19 Adult health examination 305731307 Z00.00 Depression screening [id number] Z13.31 depression screening tool administer ed Screening for alcohol abuse [id number] Z13.39 Alcohol use screening tool administer ed Lung cance r screening declined [id number] Z53.20 declined 12/19/24 am Tobacco user [id number] Z 72.0 - Continue using nicotine gum as needed for smoking cessation. Lichen sim plex chronicus [id number] L28.0 Aortic valve stenosis 60 [id number] I35.0 - Order echocardio gram to assess the severity of aortic valve stenosis.- Monitor for symptoms such as chest pain, dyspnea, syncope. Bilateral hearing loss [id number] H91.93 Reports he cannot afford hearing aides Glaucoma 26000672 H40.9 H40.1190 Continue with Brimonidin e 0.2% Hypercholesterolemia 136 52325 E78.00 - Continue regular physical activity, aiming for 45 minutes of vigorous walking five times a week. Nicotine dependence 5629 4008 F17.200 Screening for malignant neoplasm of colon 929745593 Z12.11 Declined screening at the visit and educated regarding importance of screening. Impacted c erumen of bilateral ears [id number] 940231 H61.23 In-house ear irrigation performed Health Concerns Section Related Observation LastModified by Organization Detai ls LastModified Time None Recorded Concern Status LastModified by Organization Details LastModified Time None Recorded Advance Directives Directive None Recorded Payers Encounter Date Sequence Insurance Name Policy Number Policy Escobar Covered Member ID Escobar Member ID Guarantor Name 09/29/2023 1 [employer] (MEDICARE REPLACEMENT /ADVANTAGE - PPO) [id number] Emily Mike [id number] Ash Garcia Mike 12/16/2023 1 [employer] (MEDICARE REPLACEMENT /ADVANTAGE - PPO) [id number] Emily Piersoner [id number] Ash Garcia Mike 07/05/2024 1 [employer] (MEDICARE REPLACEMENT /ADVANTAGE - PPO) [id number] Emily Garcia Mike [id number] Ash B Mike 11/09/2024 1 [employer] (MEDICARE REPLACEMENT /ADVANTAGE - PPO) [id number] Emily Piersoner [id number] Ash Garcia Mike 12/19/2024 1 [employer] (MEDICARE REPLACEMENT /ADVANTAGE - PPO) [id number] Emily Piersoner [id number] Ash Garcia Mike Notes Date Note Type Note Provider Name and Address Organization Details Recorded Time 4 text/html Physical Exam/MaleReported bypatient.PHAPatient is here for a Wellness Visit. He describes his health status as good. Patient's health is the same as last year.Risk Assessment and Lifestyle Change Counseling 65+ (Medicare)Reported bypatient.Coronary Artery Disease Risk Assessment:No Family history of coronary artery disease; No personal history of diabetes; No history of peripheral vascular disease, AAA, or carotid disease; No personal history of coronary artery disease; [place] 10 year risk Breast Cancer Risk Assessment:No family history of breast cancer; No history of breast cancer or dcis Colon Cancer Risk Assessment:No family history of pre cancerous colon polyps or cancer Lung Cancer Risk Assessment:Never smoked; No asbestos exposure Fracture Risk Assessment:No unexplained fracture; No use of corticosteroids; No anti-seizure medication; Normal bone density; Has adequate calcium intake; Taking Vitamin D supplement; No chronic use of proton pump inhibitors Cognitive/Behavioral Risk Assessment:No personal history of mental illness; No family history of mental illness Safety Risk Assessment:Has grab bars in bathroom; Has rails on steps; No falls; No evidence of abuse/neglect Functional Status:Patient does not have trouble hearing the television or radio when others do not.; Patient does not have to strain or struggle to hear/understand conversations; Patient does not need help with preparing meals, transportation, shopping, taking medicine, managing finances, or other activities of daily living.; Patient does not have visual loss that interferes with daily activities; Does not live alone; Patient was not unsteady and did not take longer than 30 seconds during the timed get up and go test.; Patient reports no falls in the past 6 months. Diet:Counseled about appropriate portion size; Counseled about eating a diet low in trans and saturated fats and high in fiber, fruits and vegetables; Counseled about appropriate calcium intake and good dietary sources of calcium.; Counseled about the importance of maintaining a positive calcium balance and taking 1000 iu Vitamin D daily.; Counseled about decreasing carbohydrates; Counseled about decreasing salt in diet; Discussed the value of a Mediterranean diet , and eating more fruits and vegetables; vegetarian Exercise counseling:Discussed the importance of daily physical activity Safety:Counseled about fall risk from throw rugs and the need for hand rails on steps and in bath Pt presents for wellness visitKnown asx aortic stenosis, denies GAN, chest pain, palps , dizziness or syncopeDoing wellPersistent low grade URI, for several weeks now. stil some cough, no hemoptysis. Still hiking, no fever, no chills. But Im going pretty slow Two neg covid tests No new concernsDenies falls, hearing loss or memory loss Teetee taylor PA-C [address] [place] [address], [phone], [facility] 10/01/2023 13:44:30 4 text/html pt presents for feeling lethargic over the last couple days, pt states also having an anxiety attackStopped coffee last week, went through some withdrawals X3-4 d, then started drinking black tea, woke up @ 3 AM today feeling panicked about the election. Mily Mason, ANDREW [address] [place], [phone], [facility] 07/05/2024 16:30:31 5 text/html he thinks he is feeling a Heart murmurhe feels a vibration in his right foot on the bottom and toe area up through his inner legit only happens occasionally, doesn't feel any panic or painhe doesn't note it when he is moving aroundhe notes it at resthe notes it in the morningit is a hum, not a numbness or tinglingno back paincan feel it in bed at night he has had two ECHOs in the past of his hearthe was explained that he has mild aortic stenosis he has mild ankle swelling in the winter, happens every winterdoesn't exercise as muchhe denies CP or SOBhe denies palpititationshe denies fatiguehe denies any activity intolerancehe notes he is slowing down a bit and he had trouble moving the heavy snowhe takes more naps and he is managing his aging Hanna Moss MD [address] [place] [address], [phone], [facility] 11/09/2024 09:34:21 5 text/html Physical Exam/MaleReported bypatient.PHAPatient is here for a Wellness Visit. He describes his health status as good. Patient's health is the same as last year.Risk Assessment and Lifestyle Change Counseling (Medicare)Reported bypatient.Coronary Artery Disease Risk Assessment:No Family history of coronary artery disease; No personal history of diabetes; No history of peripheral vascular disease, AAA, or carotid disease; No personal history of coronary artery disease; [place] 10 year risk Breast Cancer Risk Assessment:No family history of breast cancer; No history of breast cancer or dcis Colon Cancer Risk Assessment:No family history of pre cancerous colon polyps or cancer Lung Cancer Risk Assessment:Former smoker - Quit Year:(quit 8-9 years organic cigarettes- 10-12 per day); No asbestos exposure Fracture Risk Assessment:No unexplained fracture; No use of corticosteroids; No anti-seizure medication; Normal bone density; Has adequate calcium intake Cognitive/Behavioral Risk Assessment:No personal history of mental illness; No family history of mental illness Safety Risk Assessment:No grab bars in bathroom; Has rails on steps; No falls Functional Status:Patient does not have trouble hearing the television or radio when others do not.; Patient does not have to strain or struggle to hear/understand conversations; Patient does not need help with preparing meals, transportation, shopping, taking medicine, managing finances, or other activities of daily living.; Patient does not have visual loss that interferes with daily activities; Patient was not unsteady and did not take longer than 30 seconds during the timed get up and go test.; Patient reports no falls in the past 6 months. Diet:Counseled about appropriate portion size; Counseled about eating a diet low in trans and saturated fats and high in fiber, fruits and vegetables; Counseled about appropriate calcium intake and good dietary sources of calcium.; Counseled about the importance of maintaining a positive calcium balance and taking 1000 iu Vitamin D daily.; Counseled about decreasing carbohydrates; Counseled about decreasing salt in diet; Discussed the value of a Mediterranean diet , and eating more fruits and vegetables; vegetarian Exercise counseling:Discussed the importance of daily physical activity Safety:Counseled about protecting skin from the sun and lowering the risk of skin cancer; Counseled about use of seat belts; Counseled about fall risk from throw rugs and the need for hand rails on steps and in bathSocial DeterminantsReported bypatient.Living situationno concerns Living situation...do you have problems with the following:no concerns In the past 12 months, have you worried your food would run out before you had money to buy more?no concerns Within the past 12 months, the food just didn't last and you didn't have money to get more.no concerns Has lack of transportation kept you from medical appointments, meetings, work, etc?no In the past 12 months has the [employer], [employer], [employer] or water [employer] threatened to shut off services?no How hard is it for you to pay the very basics like food, house, medical care and housing?no concerns By MA: Here for annual wellnessconcerns:would like ears flushedwould like a script of eye ointment and clobetasol topical cream to have on handerythromycinproxy on fileno molst on file Ash presents for the wellness visit.Vision care: YearlyDental care: [facility] Psychosocial history:Living situation- independentlyMarital status- singleChildren- daughter- 45; daughter- 50Dietary measures- vegetarian- no red meatRest patterns- 7 hoursFrequency of exercise- walkingOccupation- carpentryDepression screening- 1 Family history:Breast or reproductive tract cancer: unknownHeart disease- noneHTN- noneDM- noneOsteoporosis- noneThyroid problems- Colonoscopy- no records available11/2024: labsdirect LDL- 125cholesterol- 199triglycerides- 126direct HDL- 59glucose- 75BUN- 17creatinine- 0.9 Aortic valve stenosis- no chest pain, dyspnea, syncope, and signs of heart failure or systemic infection. The sensation of the right foot vibration has decreased10/2023 ECHO: Normal LV size and function EF 60 to 65%.Normal RV size and function.Normal diastolic function for age.Mild aortic stenosis peak velocity 2.4 m/s mean gradient 12 mmHg.Compared to study from 2021, there is no mild aortic stenosis. Bilateral hearing loss - cannot afford hearing aids- 20-30% hearing loss to bilaterally. Hypercholesterolemia- cholesterol reviewed and currently managed through diet and physical activities.Nicotine dependence- Smoked for 40 years- organic tobacco. Uses the nicotine gumSeborrheic keratosis- CHRISTINE RON, GONZALO [address] [place] [address], [phone], [facility] 12/19/2024 16:46:47
== END ==
LOC: HO.CARD 13:48
DX: I35.0 Nonrheumatic aortic (valve) stenosis (principal)
CPT/HCPCS: 93306

== ENCOUNTER → 2025-01-30 14:00 | Outpatient (BNV) | payer MEDICARE, SELFPAY | PROVIDERS: Visit Provider Internal Medicine | DX: I35.0 Nonrheumatic aortic (valve) stenosis (principal); I34.81 Nonrheumatic mitral (valve) annulus calcification | CPT/HCPCS: 93306 ==